=== PATIENT | male | born 1995 | race Two or more races ===

== ENCOUNTER 2022-08-24 17:59 | Emergency (ER) | payer MEDICAID, OTHER ==
[~2022-08-24] VITALS: Ht 172.7 cm; Wt 56.0 kg
[2022-08-24 18:58] VITALS: BP 126/86
[2022-08-24] MEDS ORDERED: IBUP800T26 PO (19:25)
[2022-08-24] MEDS ORDERED: AMOX-277 PO (19:25)
== END 2022-08-24 19:40 | disposition home or self-care (01) ==
LOC: ER 18:02
DX: K04.7 Periapical abscess without sinus (principal)